=== PATIENT | male | born 1940 | race Caucasian/White ===

== ENCOUNTER → 2017-04-18 | Outpatient (CLI) | payer OTHER ==
[~2017-04-18] MED LIST: AMBIEN PO; AMIODARONE HCL200 MG PO; AMOXICILLIN500 M1 PO; ASPIRIN81 M2 PO; COREG12.5 MG PO; COUMADIN6 MG PO; FINASTERIDE5 M1 PO; FLOMAX0.4 M1 PO; LIPITOR40 MG PO; MELOXICAM15 MG PO; METFORMIN PO; NEURONTIN600 MG PO; OMEPRAZOLE20 M2 PO; PERCOCET10 PO; SYNTHROID PO; TRAMADOL HCL50 M1 PO; ZESTRIL40 MG PO
--- NOTE | ~2017-04-18 | CO ---
Unit #: [id number] #: [id number] Patient: GUILLERMO MIX [id number] [address] [place], [place] [address] [id number] O MR#: [id number] NAME: GUILLERMO MIX ROOM: Age: 77 Sex: M Admission Date: 04/18/2017 : 1940 Attending Physician: Robert Hodgson M.D. Primary Care Physician: Octavio Dyer M.D. CONSULTATION REPORT REASON FOR CONSULTATION Preop medical evaluation prior to left total knee arthroplasty scheduled by Dr. Hodgson for 04/30/17. HISTORY OF PRESENT ILLNESS The patient is a 77-year-old male who presents to preprocedural screening for the reasons indicated above. He has no complaints at the time of this evaluation today. He denies upper chest, upper back, arm, neck, jaw pain or pressure; denies dyspnea on exertion, shortness of air, paroxysmal nocturnal dyspnea, orthopnea and/or snoring. He has not been evaluated for sleep apnea. He denies lightheadedness, dizziness, presyncope, syncope and palpitations. He has a known cardiac history and was evaluated and has been given preoperative cardiac clearance with an RSRI of 0.9% with no further cardiac workup or intervention needed at this time per review of [facility] cardiology note dated 03/27/17. He has been evaluated by Dr. Hodgson and scheduled for the above-referenced procedure. PAST MEDICAL HISTORY 1. Denies known history of myocardial infarction, has a history of systolic congestive heart failure with most recent documented left ventricular ejection fraction of 60% on his most recent echo per review of the 03/27/17 cardiology note. History of atrial fibrillation, controlled on amiodarone and carvedilol. 2. Osteoarthritis. 3. Diabetes mellitus, noninsulin dependent. 4. Diabetic neuropathy. 5. History of osteomyelitis of the right ankle on chronic amoxicillin therapy. 6. BPH. 7. Hyperlipidemia. PAST SURGICAL HISTORY 1. Right tib/fib fracture repair. 2. Right total knee arthroplasty. 3. Tonsillectomy. 4. Left hip replacement. 5. Left hip reopening to remove a staple. 6. Right hip replacement. 7. Right rotator cuff surgery. 8. Bilateral carpal tunnel surgery. 9. TURP. 10. Cardiac ablation. 11. Cardioversion for atrial fibrillation. Unit #: [id number] #: [id number] Patient: GUILLERMO MIX ANESTHESIA Please note this patient denies a personal and family history of complications to anesthesia. SOCIAL HISTORY Patient does not use tobacco or illicit drugs. He consumes approximately two beers monthly. REVIEW OF SYSTEMS Patient reports left knee discomfort, otherwise a 10-point review of systems is conducted and negative except as indicated under history of present illness above. ALLERGIES Cephalexin, rifampin and cefazolin all result in facial swelling. CURRENT MEDICATIONS 1. Aspirin 81 mg p.o. daily. 2. Ambien 5 mg p.o. q.h.s. p.r.n. 3. Tramadol hydrochloride two tabs p.o. q.6 h. p.r.n. pain. Please note this dose will need to be clarified. 4. Flomax 0.4 mg p.o. q.h.s. 5. Amiodarone one tab p.o. q.a.m. Again this dose will need to be clarified. 6. Amoxicillin 500 mg p.o. daily. 7. Lipitor 40 mg p.o. q.h.s. 8. Carvedilol 12.5 mg p.o. b.i.d. 9. Finasteride 5 mg p.o. q.a.m. 10. Neurontin 600 mg p.o. b.i.d. 11. Synthroid 0.25 mg p.o. q.a.m. (patient states he takes this because he is on amiodarone, not because he has a history of hypothyroidism. 12. Zestril 40 mg p.o. q.a.m. 13. Meloxicam 15 mg p.o. q.a.m. 14. Glucophage 250 mg p.o. b.i.d. at breakfast and supper with meals. 15. Omeprazole 20 mg p.o. daily. PHYSICAL EXAMINATION GENERAL APPEARANCE: A 77-year-old male who appears younger than his state age, awake, alert, in no acute distress. VITAL SIGNS: Temperature 97.4. Heart rate 56. Respiratory rate 20. Blood pressure 170/87. Oxygen saturation 100% on room air. HEENT: Normocephalic and atraumatic. Sclerae anicteric. No discharge from eyes, ears or nares. LYMPH: No preauricular, postauricular, tonsillar, submental anterior or posterior cervical, supra or infraclavicular adenopathy. ENDOCRINE: No thyromegaly, thyroid nodules or tenderness. RESPIRATORY: Clear to auscultation all le bilaterally without wheezes, rhonchi or rales. CARDIOVASCULAR: S1 and S2, regular rate and rhythm, without murmur or rub. No carotid bruits. GI: Bowel sounds positive x4, soft, nontender, nondistended. EXTREMITIES: No edema, cyanosis or clubbing. NEUROLOGIC: Alert and oriented x3. Speech clear. Cranial nerves II through XII grossly intact. Follows directions for examination. DIAGNOSTIC STUDIES LABORATORY: WBC 4.9, hemoglobin 13.0, hematocrit 41.2, platelets 232,000. Unit #: [id number] #: [id number] Patient: GUILLERMO MIX Sodium 137, potassium 5.4, chloride 105, CO2 27, glucose 111, BUN 28, creatinine 1.1, calcium 9.6, AST 28, ALT 26, alkaline phosphatase 101, total bilirubin 0.7, total protein 7.1, albumin 4.1. Blood type O-positive, antibody screen negative. PT 10.6, INR 1.0. Urinalysis urobilinogen 1.0, otherwise negative with neither microscopic nor culture indicated. MRSA nasal swab report pending at this time. TSH and free T4 pending at this time as well. IMAGING: Two-view chest x-ray report pending at this time. CARDIOVASCULAR: Twelve-lead EKG, date of study 03/27/17, performed at the [facility] and confirmed by Vincent Paz M.D., sinus bradycardia, otherwise normal ECG. When compared with ECG of October 05, 2016 no significant change was found. IMPRESSION The patient is a 77-year-old male who presents to preprocedural screening for: 1. Preoperative medical evaluation prior to left total knee arthroplasty. The patient's Jimenez Revised Cardiac Risk Index is equal to 0.4% and the patient's RSRI according to the patient's director translational through the [facility] is 0.9%. This represents the patient's perioperative risk of fatal or nonfatal myocardial infarction, cardiopulmonary arrest, arrhythmia and/or pulmonary edema. This has been discussed in detail with the patient and he wishes to proceed with surgery as scheduled at this time. 2. History of atrial fibrillation. Patient is clinically stable and has a regular heart rate at the time of the examination today. Will continue amiodarone perioperatively, await results of thyroid test. 3. Osteoarthritis. 4. Diabetes mellitus, noninsulin dependent. Will hold oral hypoglycemics perioperatively and monitor oral intake, place patient on low dose sliding scale insulin and follow Accu-Cheks a.c. and h.s. 5. Diabetic neuropathy. Patient is on gabapentin 600 mg p.o. b.i.d. for this. Will monitor the patient's respiratory rate and hold Neurontin if indicated. 6. History of osteomyelitis of the right ankle. At this time will plan to continue the amoxicillin perioperatively. 7. Enlarged prostate. Continue Flomax and monitor for postop urinary retention. Patient has requested a p.r.n. order from Dr. Hodgson for a Sutton catheter placement. Patient has been advised this is part of a standing order set. 8. Hyperlipidemia. Continue Lipitor perioperatively. 9. History of systolic congestive heart failure. Patient is asymptomatic and clinically stable from a cardiac standpoint today. Again patient has been given preop cardiac clearance. 10. Hyperkalemia. It is unclear if this is just a transient mild elevation in his potassium level versus elevated dietary sources versus medication effect on the kidneys given he is taking an ALICIA inhibitor, a diuretic and metformin. The patient has been given a prescription with a lab order to take to [facility], which is closer to him, for a repeat BMP and magnesium level in the morning. They are to fax results to [phone] for my review. I have informed the patient that he may ultimately require adjustment in his antihypertensive medications. 11. Positive risk factors for obstructive sleep apnea based on STOP-BANG protocol. I have discussed this with the patient. He has never had a sleep evaluation. I am recommending preoperative obstructive sleep Unit #: [id number] #: [id number] Patient: GUILLERMO MIX apnea evaluation secondary to risk factors. The ultimate decision in this regard will be per Dr. Hodgson. Thank you for allowing us to participate in the care of this patient. We will gladly follow along for postop medical management pending further recommendations of Dr. Hodgson. I have recommended the patient be placed on LOYD protocol postoperatively. Dictated by... Jaylin Adkins A.P.R.N. for Ishan Leblanc/whitney TD: 04/18/2017 16:53 JOB #: [id number] CONSULTATION REPORT Page 1 of 1 X Jaylin Adkins APRN X CONSULTATION REPORT
--- NOTE | ~2017-04-18 | CR63 ---
[facility] A Service of [facility] & [facility] RADIOLOGY TEXT RESULTS PATIENT: GUILLERMO MIX LOCATION: [facility] : 41 UNIT #: [id number] AGE: [address]: Robert Hodgson MD SEX: M ORDER DR: [id number] [facility] [address] [place], [place] [address] [id number] O MR#: [id number] Acc #: [id number] NAME: GUILLERMO MIX : 1940 SEX: M STUDY DATE/TIME: 04/18/2017 10:29 UNIT: [facility] ROOM: STUDY DESCRIPTION: CR Chest 2 View Attending Physician: Robert Hodgson M.D. Referring Physician: Robert Hodgson M.D. Ordering Physician: Robert Hodgson M.D. Primary Care Physician: Octavio Dyer M.D. MEDICAL IMAGING REPORT This report is preliminary unless electronic signature is present EXAM Two view chest 04/18/2017. HISTORY A 77-year-old male preop left total knee arthroplasty. Osteoarthritis left knee. History of atrial fibrillation and diabetes. COMPARISON Chest 08/25/2011. FINDINGS Two-view chest demonstrates normal heart size. Hilar structures and mediastinal contours are preserved. Bilateral lungs are fully expanded and clear. Costophrenic angles are clear. Bony thorax is normal. IMPRESSION Negative chest Dictated by... Juanito Willams M.D. THIS IS AN ELECTRONICALLY VERIFIED REPORT Juanito Willams M.D. at 04/18/2017 12:46 PM Jose Carlos TD: 04/18/2017 11:37 JOB #: [id number] MEDICAL IMAGING REPORT Page 1 of 1 COPY
[2017-04-18 10:01] LABS: HEMATOCRIT 41.2 % (38.0-50.0); MEAN CELL VOLUME 77.8 FL (83-96); MEAN CORPUSCULAR HEMOGLOBIN 24.5 PG (28-34); MEAN CORPUSCULAR HGB CONC 31.5 g/dL (30-36); MEAN PLATELET VOLUME 7.5 FL (6.5-11.5); RED BLOOD COUNT 5.29 X10e (3.90-5.60); RED CELL DISTRIBUTION WIDTH 17.5 % (11.0-15.5); URINE APPEARANCE CLEAR; URINE BILIRUBIN NEG (NEG); URINE BLOOD NEG (NEG); URINE COLOR YELLOW; URINE GLUCOSE NEG (NEG); URINE KETONE NEG (NEG); URINE LEUKOCYTE ESTERASE NEG (NEG); URINE NITRATE NEG (NEG); URINE PH 5.5 (5-8); URINE PROTEIN NEG (NEG); WHITE BLOOD COUNT 4.9 X10e3 (4.0-10.5)
[2017-04-18 10:06] LABS: CULTURE INDICATED? NO
[2017-04-18 10:20] LABS: PROTHROMBIN TIME (PATIENT) 10.6 SECONDS (9.6-11.5)
[2017-04-18 10:59] LABS: ALBUMIN SERUM 4.1 g/dL (3.5-5.0); BILIRUBIN,TOTAL 0.7 mg/dL (0.2-2.0); BUN/CREATININE RATIO 25.45; CALCIUM SERUM 9.6 mg/dL (8.4-10.2); CREATININE SERUM 1.1 mg/dL (0.6-1.4); GLOM FILT RATE Estimated 64.9 mL/min (>60); POTASSIUM 5.4 mmol/L (3.5-5.1); PROTEIN TOTAL SERUM 7.1 g/dL (6.0-8.3)
[2017-04-18 17:05] LABS: THYROID STIMULATING HORMONE 2.48 uIU/ml (0.34-5.60)
[2017-04-18 17:12] LABS: FREE THYROXIN (T4) 0.72 ng/dL (0.58-1.64)
== END | disposition home or self-care (01) ==
LOC: CAMB 09:24
PROVIDERS: Orthopaedic Surgery
DX: Z01.818 Encounter for other preprocedural examination (principal); M17.12 Unilateral primary osteoarthritis, left knee; I48.91 Unspecified atrial fibrillation; Z79.01 Long term (current) use of anticoagulants
CPT/HCPCS: 36415; 71020; 80053; 81003; 84439; 84443; 85027; 85610; 86850; 86900; 86901; 87070

== ENCOUNTER 2017-04-30 05:25 | Inpatient (IN) | payer OTHER ==
--- NOTE | ~2017-04-30 | OR ---
Unit #: [id number] #: [id number] Patient: GUILLERMO MIX [id number] [address] [place], [place] [address] [id number] I MR#: [id number] NAME: GUILLERMO MIX ROOM: [facility] Date of Procedure: 04/30/2017 Admission Date: 04/30/2017 Surgeon: Robert Hodgson M.D. : 1940 Attending Physician: Robert Hodgson M.D. Primary Care Physician: Octavio Dyer M.D. OPERATIVE REPORT PREOPERATIVE DIAGNOSIS Primary localized osteoarthritis of the right knee. POSTOPERATIVE DIAGNOSIS Primary localized osteoarthritis of the right knee. PROCEDURE PERFORMED Right total knee. ASSISTANTS Anshu and Servando. ANESTHESIA Adductor canal block plus general. ESTIMATED BLOOD LOSS 100 mL. INDICATIONS FOR PROCEDURE This is a 77-year-old with severe pain in his left knee. The pain limits his walking and standing. He has tried injections and anti-inflammatories with no relief of his discomfort. His x-rays show he has ytti-xx-virs with subchondral sclerosis. DESCRIPTION OF PROCEDURE The patient was brought to the operating room, given an adductor canal block. He was also given 2 g of vancomycin. This will be continued postop, but discontinued within 23 hours from the start time of surgery. He was then brought back to the operating room, given a general anesthetic. Tourniquet placed around the left thigh. The left leg was prepped and draped in a sterile fashion. Tourniquet inflated to 200. A straight anterior skin incision was made. The subcutaneous dissected away and a medial arthrotomy performed. Patella was slid to the side. Osteophytes were removed from the femur. The intramedullary guide was used and a 6-degree valgus cut was made on the distal femur. The femur was sized and found to be a size 6. The anterior-posterior cutting block applied. Rotation was checked in the knee. Anterior and posterior cuts were made along with the chamfer cuts. Proximal tibial cut was made. The remaining meniscal fragments debrided. Osteophytes removed from the posterior femoral condyles. Posterior capsule was injected with ropivacaine as was the periosteum. Trial femur was applied. The drill Unit #: [id number] #: [id number] Patient: GUILLERMO MIX holes were made for lugs on the femoral component. The trial tibia was applied and then with a DICTATION ENDS HERE Dictated by... Ishan Schreiber/chante TD: 04/30/2017 20:21 JOB #: [id number] OPERATIVE REPORT Page 1 of 1 X Robert Hodgson MD X PROCEDURE OPERATIVE NOTE
--- NOTE | ~2017-04-30 | DS ---
Unit #: [id number] #: [id number] Patient: GUILLERMO WOOD [id number] [address] [address] [id number] I MR#: [id number] NAME: GUILLERMO WOOD ROOM: 449 Age: 77 Sex: M Admission Date: 04/30/2017 : 1940 Discharge Date: 05/01/2017 Attending Physician: Robert Hodgson M.D. Primary Care Physician: Octavio Dyer M.D. DISCHARGE SUMMARY ADMITTING DIAGNOSIS Left knee osteoarthritis. DISCHARGE DIAGNOSIS Left knee osteoarthritis. HOSPITAL COURSE On 04/30/2017 Mr. Wood underwent a left total knee arthroplasty. He tolerated the procedure well. He was transported to the fourth floor, where he underwent physical therapy, medical management and anticoagulation therapy. He is doing well and is ready to be discharge. DISCHARGE CONDITION Stable. DISPOSITION Discharge home with home health. DISCHARGE MEDICATIONS 1. Routine home medications. 2. Percocet 10/325 mg. 3. Coumadin 6 mg. 4. Lovenox 40 mg subcutaneous daily until INR is greater than or equal to 2.0. FOLLOWUP 1. Mr. Wood is going to be discharged with home health. The patient is on Coumadin for DVT prophylaxis. 2. PT/INR is to be drawn every Sunday and , in addition to tomorrow, 05/02/2017. 3. Physical therapy is to be done for active range of motion, strengthening and progressive ambulation. 4. The patient will be on a walker for four weeks and a cane for an additional two weeks. 5. Follow-up appointment with Dr. Hodgson is in six weeks. He is to call our office for that appointment date and time. Dictated by... Awa Brasher PKwanAKwanCKwan for Ishan Schreiber/kong Unit #: [id number] #: [id number] Patient: GUILLERMO WOOD TD: 05/03/2017 08:25 JOB #: [id number] DISCHARGE SUMMARY Page 1 of 1 X Awa Brasher DISCHARGE SUMMARY
[~2017-04-30 05:25] MED LIST changes: -COUMADIN6 MG PO; -PERCOCET10 PO
[2017-04-30 06:32] LABS: PROTHROMBIN TIME (PATIENT) 11.3 SECONDS (10.0-11.7)
[2017-04-30 07:28] LABS: BUN/CREATININE RATIO 19.09; CALCIUM SERUM 8.9 mg/dL (8.4-10.2); CREATININE SERUM 1.1 mg/dL (0.6-1.4); GLOM FILT RATE Estimated 64.9 mL/min (>60); MAGNESIUM 1.6 mg/dL (1.6-3.0); POTASSIUM 4.1 mmol/L (3.5-5.1)
[2017-05-01 03:52] LABS: HEMATOCRIT 34.6 % (38.0-50.0)
[2017-05-01 04:05] LABS: INR 1.2; PROTHROMBIN TIME (PATIENT) 13.3 SECONDS (10.0-11.7)
[2017-05-01 04:13] LABS: CALCIUM SERUM 8.3 mg/dL (8.4-10.2); GLOM FILT RATE Estimated 72.8 mL/min (>60); MAGNESIUM 1.6 mg/dL (1.6-3.0); POTASSIUM 4.2 mmol/L (3.5-5.1)
[2017-05-01] MEDS ORDERED: PERCOCET10 PO (15:44)
[2017-05-01] MEDS ORDERED: COUMADIN6 MG PO (15:45)
== END 2017-05-01 17:24 | disposition home health service (06) | DRG 470 ==
LOC: CSUR 05:25 → C4B 07:00 → CSUR 07:00 → CPACUOF 07:00 → CSUR 08:53 → CPACUOF 09:40 → C4B 09:40
PROVIDERS: Nurse Practitioner; Orthopaedic Surgery
PROC: 0SRC0J9 Replacement of Right Knee Joint with Synthetic Substitute, Cemented, Open Approach (ICD-10-PCS; principal; 2017-04-30 07:00)
DX: M17.12 Unilateral primary osteoarthritis, left knee (principal); E11.40 Type 2 diabetes mellitus with diabetic neuropathy, unspecified; I50.22 Chronic systolic (congestive) heart failure; I11.0 Hypertensive heart disease with heart failure; D62 Acute posthemorrhagic anemia; Z82.3 Family history of stroke; Z96.643 Presence of artificial hip joint, bilateral; Z82.49 Family history of ischemic heart disease and other diseases of the circulatory system; I48.91 Unspecified atrial fibrillation; N40.0 Benign prostatic hyperplasia without lower urinary tract symptoms; E78.5 Hyperlipidemia, unspecified
CPT/HCPCS: 80048; 82947; 83735; 85014; 85018; 85610; 94760; 94761; 97110; 97116; 97161; 97530; C1776; J0131; J0171; J0735; J1100; J1650; J1885; J2250; J2405; J2795; J3010; J3370